=== PATIENT | male | born 1960 | race Hispanic/Latino ===

== ENCOUNTER 2016-02-29 14:55 | Emergency (ER) | payer SELFPAY ==
[~2016-02-29] VITALS: Ht 162.6 cm; Wt 81.8 kg
[~2016-02-29 14:55] MED LIST: METO50TA3 PO; TRAM50TA2 PO
[2016-02-29 15:23] VITALS: BP 154/91; PULSE 90; RESP 16; O2SAT 96
--- NOTE | 2016-02-29 17:10 | ED.REPORT ---
HPI-Abd Pain M 40 and Over Date of Service Feb 29, 2016 ED Provider: Derik Street MD Patient is a 55 year old male with a history of GERD, hypertension, and chronic back pain who presents to the ED with LLQ abdominal pain for the past 2 weeks. He reports associated fever of 102F 2 days ago, but is afebrile in the ED. He reports associated nausea and vomiting. The patient reports decreased PO intake for the past 2 days (since Thursday) due to nausea, with increased gassiness and acid reflex when he eats. Patient reports dark and hard stool. Patient also reports some chest wall pain but denies cough. He denied diarrhea, bloody stool , or dysuria. The patient states that he has previously had the same pain several years ago but no cause for his pain was identified. Nursing Notes Stated Complaint: L SIDE ABD PAIN Chief Complaint: Male Abdominal Pain Nursing Notes Reviewed: Yes Allergies: Coded Allergies: naproxen (Verified Adverse Reaction, Unknown, 10/26/14) Scheduled Metoprolol Tartrate (Metoprolol Tartrate) 50 Mg Tablet 50 MG PO BID Polyethylene Glycol 3350 (Miralax) 17 Gm Powd.pack 17 GM PO DAILY Scheduled PRN Tramadol (Tramadol) 50 Mg Tablet 50 MG PO HS PRN PRN For Pain General Time Seen by MD: 17:09 Chief Complaint Abdominal pain Hx Obtained From: Patient Arrived By: Walk-in Sudden in Onset?: No Onset Occurred: More than a week ago... (2 weeks) Symptom Duration: Since onset Progression since Onset: Gradually worsening Location: : LLQ Quality: Painful Severity: Current: Moderate Severity: Maximum: Severe Recent Healthcare: No recent doctor visit, No recent hospitalization Similar Sx Previous: No Past Medical History Past Medical History chronic Back pain Reports: GERD, Hypertension Past Surgical History Denies Family History non-contributory Smoking History Never Smoker Social History Alcohol Use: Denies alcohol use Other Social History: Good social support, , Local resident Ambulatory Status Independent Review of Systems Constitutional: Reports: Fever, Denies: Chills Respiratory: Reports: Pleuritic pain, Denies: Non-productive cough Cardiovascular: Denies: Chest pain GI: Reports: Abdominal pain, Bloody/tarry stool, Diarrhea, Nausea, Vomiting Male: Denies Dysuria, Denies Flank pain Musculoskeletal: Reports: Back pain (chronic) Complete sys rev & neg: except as marked. Physical Exam Initial Vital Signs Vital Signs (First) Date Time Temp Pulse Resp B/P Pulse Ox O2 Delivery O2 Flow Rate FiO2 02/29/16 15:23 36.8 90 16 154/91 96 Room Air Initial VS: Reviewed Head / Eyes: Atraumatic, Normocephalic, PERRL ENT: Conjunctiva normal, No scleral icterus Neck: Supple, Full range of motion Extremities: Vascular intact, Neuro intact, No swelling Skin: Warm, Dry, No cyanosis Neurologic: Alert, Oriented, Nonfocal Psychiatric: Mood/affect normal, Behavior normal, Normal thought content General/Constitutional: Awake, Alert, No acute distress Respiratory / Chest: Breath sounds NL, Breath sounds = bilat, No respiratory distress, No rales, No rhonchi, No wheezing Cardiovascular: Heart rate NL, Regular rhythm, Heart sounds NL Abdomen: No guarding, No rebound Tenderness/Guarding/Rebound: Positive: Tender LLQ... (most tender), Tender diffuse Back: Atraumatic, No CVA tenderness Rectum / Perineum: Blood - occult heme -, No gross blood Rectal for Blood: Negative: Melena present Interpretation & Diagnostics Lab Results Interpretation Result Diagram: 02/29/16 1738 02/29/16 1738 Test 02/29/16 15:50 02/29/16 17:35 02/29/16 17:38 Urine Color Yellow (YELLOW) Urine Appearance Clear (CLEAR,HAZY) Urine pH 6.0 (5.0-8.0) Urine Specific [place] 1.020 (1.003-1.035) Urine Protein Negativemg/dL (NEG,TRACE) Urine Glucose (UA) Negativemg/dL (NEGATIVE) Urine Ketones 15mg/dL (NEGATIVE) Urine Occult Blood Negative (NEGATIVE) Urine Nitrite Negative (NEGATIVE) Urine Bilirubin Negative (NEGATIVE) Urine Urobilinogen Normalmg/dL (NORMAL) Urine Leukocyte Esterase Negative (NEGATIVE) Urine RBC 0-2/hpf (0-2) Urine WBC 0-5/hpf (0-5) Urine Epithelial Cells Occasional/hpf (NONE-MOD) Urine Crystals None seen (NONE SEEN) Urine Bacteria Few/hpf (NONE-FEW) Urine Hyaline Casts None/lpf (NONE) Urine Granular Casts None seen (NONE SEEN) Urine Waxy Casts None seen (NONE SEEN) Urine Red Blood Cell Casts None seen (NONE SEEN) Urine White Blood Cell Casts None seen (NONE SEEN) Urine Mucus Present (None Seen) Urine Trichomonas None seen (NONE SEEN) Urine Yeast None (NONE SEEN) Urinalysis Comment None Urine Culture Reflexed Not indicated Hold Urine Received (Received) Prothrombin Time 11.0sec (8.1-12.5) Prothromb Time International Ratio 1.03ratio Lactic Acid Level 1.1mmol/L (0.4-2.0) White Blood Count 3.6th/mm3 (3.8-10.1) Red Blood Count 5.57mil/mm3 (4.40-5.80) Hemoglobin 16.5g/dL (13.8-17.2) Hematocrit 47.6% (41.0-50.0) Mean Corpuscular Volume 85.5fL (81-100) Mean Corpuscular Hemoglobin 29.6pg (27.0-35.0) Mean Corpuscular Hemoglobin Concent 34.7% (32.0-37.0) Red Cell Distribution Width 13.2% (12.3-15.4) Platelet Count 152bil/L (150-400) Neutrophils (%) (Auto) 52.7% (40-74) Lymphocytes (%) (Auto) 30.7% (14-46) Monocytes (%) (Auto) 14.1% (4-12) Eosinophils (%) (Auto) 1.9% (0-5) Basophils (%) (Auto) 0.6% (0-3) Sodium Level 140mEq/L (134-144) Potassium Level 4.2mEq/L (3.5-5.2) Chloride Level 99mEq/L (97-108) Carbon Dioxide Level 27mmol/L (18-29) Blood Urea Nitrogen 11mg/dL (6-24) Creatinine 1.00mg/dL (0.76-1.27) Estimat Glomerular Filtration Rate 83mL/min (>59) Glucose Level 104mg/dL (60-99) Calcium Level 8.9mg/dL (8.5-10.1) Magnesium Level 2.1mg/dL (1.6-2.6) Total Bilirubin 0.7mg/dL (0.0-1.2) Aspartate Amino Transf (AST/SGOT) 50U/L (0-50) Alanine Aminotransferase (ALT/SGPT) 60U/L (0-44) Alkaline Phosphatase 58U/L (25-150) Total Protein 7.2g/dL (6.4-8.4) Albumin 4.4g/dL (3.4-5.0) Lipase 31U/L (13-60) Hold Rangel Top Tube Received (Received) ECG Interpretation ECG Interpretation: Sinus rhythm, Rate [address] elevations or depressions Time: 18:37 Interpreted by: ED physician CT Abd / Pelvis Interpretation IMPRESSION: A a definite source of current symptoms is not seen. There is generalized colonic obstipation, as a potential cause for symptomatology. No free fluid seen throughout the abdomen or pelvis. Dictated by: Austin Tello M.D. on 02/29/2016 at 20:11 Approved by: Austin Tello M.D. on 02/29/2016 at 20:11 Interpretation / Wet Read by: Interpret - Radiologist Re-Eval/Medical Decision Med Decision/Clinical Course 55-year-old male with history of left quadrant pain times several weeks. Fever several days ago. Tender left lower quadrant. CT abdomen and pelvis performed with oral contrast which showed constipation no evidence of diverticulitis. Labs unremarkable. Urine negative for infection. No leukocytosis. Patient will be discharged home in good condition with return precautions regarding worsening abdominal pain, fevers, nausea vomiting, any other new or worsening symptoms. He was given prescription for MiraLAX to use as needed. Source of Hx: Old records Time of Eval: 20:48 Patient Status: Condition improved Re-Evaluation/Progress Note: Rechecked the patient. Informed him of the results of the CT scan and labs. No acute problem found, however he is constipated. He was encouraged to consume more fiber and MiraLAX. Patient understands and agrees with the plan to be discharged home. Discharge instructions and follow-up discussed. All questions were addressed. Return to the ED warnings given. Counseled Regarding: Diagnosis, Lab results, Need for follow-up, When/why to return to ED Discharge & Departure Primary Impression: Constipation Constipation type: unspecified constipation type Qualified Code: K59.00 - Constipation, unspecified Disposition: Home Vital Signs - All Vital Signs Date Time Temp Pulse Resp B/P Pulse Ox O2 Delivery O2 Flow Rate FiO2 1/13/17 20:59 36.7 77 16 117/75 97 Room Air 02/29/16 15:23 36.8 90 16 154/91 96 Room Air )( All Prior VS Reviewed: Yes Condition: Stable Patient Instructions: Constipation (ED) Additional Instructions: The CT scan of your abdomen showed that you are constipated. There was no dangerous cause for you abdominal pain identified. The laboratory evaluation was normal. Your overall evaluation was reassuring. Take MiraLAX as directed for constipation. Follow-up with your doctor in the next week if your symptoms do not resolve. Return to the emergency department if you develop worsening abdominal pain, fever, vomiting, inability to pass gas or stool, or any other concerning symptoms. La CT de mathews abdomen mostr que usted est estreido. No haba ninguna causa peligrosa para usted dolor abdominal identificado. La evaluacin del laboratorio fue normal. Mathews evaluacin general fue reconfortante. Warrior MiraLAX segn las indicaciones para el estreimiento. Jenny un seguimiento con mathews mdico en la prxima semana si seng sntomas no se resuelven. Vuelva al departamento de urgencias si desarrolla empeoramiento de dolor abdominal, fiebre, vmitos, incapacidad para pasar gas o heces, o cualquier otro problema relacionado con los sntomas. Referrals: Sal Goodwin MD (PCP) Scribe Attestation Portions of this note were transcribed by Aline Jean Baptiste. I, Dr. Street personally performed the history, physical exam and medical decision-making; I reviewed and confirmed the accuracy of the information in the transcribed note. Signed by: Srinath Ballard, 02/29/2016 [id number] copies to: Sal Goodwin MD, Ben M MD Feb 29, 2016 17:10 Aline Jean Baptiste Feb 29, 2016 17:48
[2016-02-29] MEDS ORDERED: 0.9% Sodium Chloride 1,000 ML IV ONE (17:47)
[2016-02-29] MEDS ORDERED: Iohexol 300 mg/mL 30 mL Inj PO ONE (17:50)
[2016-02-29] MEDS ORDERED: Ondansetron 2 mg/mL 2 mL Inj IVPUSH ONE (17:50)
[2016-02-29 17:51] LABS: BASOPHILS % (AUTO) 0.6 % (0-3); EOSINOPHILS % (AUTO) 1.9 % (0-5); MONOCYTES % (AUTO) 14.1 % (4-12); Mean Corpuscular Hemoglobin 29.6 pg (27.0-35.0); Mean Corpuscular Volume 85.5 fL (81-100); NEUTROPHILS % (AUTO) 52.7 % (40-74); Platelet Count 152 bil/L (150-400)
[2016-02-29 18:06] LABS: INR 1.03 ratio
[2016-02-29 18:14] LABS: Magnesium 2.1 mg/dL (1.6-2.6)
[2016-02-29 18:28] LABS: APPEARANCE,URINE CLEAR (CLEAR,HAZY); COLOR,URINE YELLOW (YELLOW); OCCULT BLOOD,URINE NEGATIVE (NEGATIVE); UROBILINOGEN,URINE NORMAL (NORMAL)
--- NOTE | 2016-02-29 20:13 | DRSVH ---
PROCEDURE: CT ABDOMEN AND PELVIS WITH CONTRAST ([id number]) INDICATIONS: LLQ pain TECHNIQUE: After the administration of oral and intravenous contrast, 5 mm thick sections acquired from the diap hragms to the symphysis. 5 mm thick coronal and sagittal reformats were performed. For radiation do se reduction, the following was used: automated exposure control, adjustment of mA and/or kV accordi ng to patient size. COMPARISON: None. FINDINGS: Image quality: Excellent. ABDOMEN: Lung bases: Lung bases are clear. Heart size is normal. Solid organs: Liver and spleen are normal in size and enhancement. Gallbladder appears normal. Max iary system is non-dilated. Pancreas enhances normally. No adrenal nodules. Kidneys are normal in size and enhancement, without hydronephrosis. Peritoneum and bowel: Stomach, small bowel, and colon loops are normal in caliber and wall thickness . No free fluid or air. There is generalized colonic obstipation bilaterally, and within the abdome n and pelvis Nodes and vessels: No retroperitoneal or mesenteric adenopathy. Aorta and inferior vena cava are no rmal in caliber. Miscellaneous: No ventral hernias. PELVIS: Genitourinary: Bladder wall thickness is normal. Miscellaneous: No inguinal hernias or adenopathy. Colonic obstipation, no sign of diverticulitis. No free fluid found throughout the peritoneal space. Bones: No suspicious bony lesions. No vertebral body compression fractures. IMPRESSION: A a definite source of current symptoms is not seen. There is generalized colonic obsti pation, as a potential cause for symptomatology. No free fluid seen throughout the abdomen or pelvis . Dictated by: Austin Tello M.D. on 02/29/2016 at 20:11 Approved by: Austin Tello M.D. on 02/29/2016 at 20:11
[2016-02-29] MEDS ORDERED: POLY17PO6 PO (20:45)
[2016-02-29 20:59] VITALS: BP 117/75; PULSE 77; RESP 16; O2SAT 97
== END 2016-02-29 21:04 | disposition home or self-care (01) ==
LOC: SED 14:55
DX: K59.00 Constipation, unspecified (principal); R50.9 Fever, unspecified; R11.2 Nausea with vomiting, unspecified; R07.89 Other chest pain; K21.9 Gastro-esophageal reflux disease without esophagitis; I10 Essential (primary) hypertension; M54.9 Dorsalgia, unspecified; G89.29 Other chronic pain; Z88.6 Allergy status to analgesic agent
CPT/HCPCS: 36415; 74177; 80053; 81000; 83605; 83690; 83735; 85025; 85610; 93005; 96361; 96374; 96375; 99285; J2270; J2405; J7030; Q9967